=== PATIENT | male | born 1955 | race Caucasian/White ===

== ENCOUNTER 2023-05-13 11:59 | Day surgery (SDC) | payer MEDICARE, OTHER, SELFPAY ==
[2023-05-13] VITALS (7 sets, daily range): BP systolic 109–162; BP diastolic 71–88; PULSE 55–62; RESP 16; TEMP 36.2–36.5; O2SAT 97–100; BMI 26.0
--- NOTE | 2023-05-13 12:26 | PCM.HP.STD ---
[facility] - General General Date of Admission: 05/13/23 Date of Service: 05/13/23 Chief Complaint: Screening colonoscopy HPI Narrative SWAPNIL ASHRAF, is a 68 M who presents today for screening colonoscopy. He had a prior colonoscopy approximately 10 years ago. Patient that he did have some small polyps but they were all benign. He is not in abdominal pain nausea, chest pain or shortness of breath. He does have a history of CAD. He is on Plavix therapy. He also history of gastroesophageal reflux disease and takes pantoprazole. He feels like he is in very good health. [facility] Medical History (Updated 05/07/23 @ 13:50 by Nadia Aguirre) Asthma Cardiology follow-up encounter CPAP (continuous positive airway pressure) dependence Former smoker Hearing deficit Hiatal hernia with gastroesophageal reflux History of colon polyps History of diverticulitis History of echocardiogram History of edema History of stress test Injury of head and neck Rash Restless legs Sleep apnea Stroke TIA (transient ischemic attack) Wears glasses Home Medications clopidogrel 75 mg tablet (Plavix) 75 mg PO DAILY 03/05/23 [History Last Taken 05/11/23] fluticasone furoate 100 mcg-vilanterol 25 mcg/dose inhalation powder (Breo Ellipta) 1 inh inhalation DAILY 03/05/23 [History Last Taken Unknown] pantoprazole 40 mg tablet,delayed release (Protonix) 40 mg PO DAILY 03/05/23 [History Last Taken 05/13/23] Lactobacillus acidophilus 10 billion cell capsule (NewFlora) 100 mmu cells PO DAILY 05/07/23 [History Last Taken Unknown] frmnx-j-kdvvvkxhfnrgp 150 unit PO DAILY 05/07/23 [History Last Taken Unknown] cetirizine 10 mg tablet (24Hour Allergy) 10 mg PO DAILY 05/07/23 [History Last Taken Unknown] cholecalciferol (vitamin D3) 50 mcg (2,000 unit) capsule (Vitamin D3) 50 mcg PO DAILY 05/07/23 [History Last Taken Unknown] magnesium 250 mg tablet 250 mg PO DAILY 05/07/23 [History Last Taken Unknown] multivitamin (Daily Multi-Vitamin tablet) 1 tab PO DAILY 05/07/23 [History Last Taken Unknown] Allergy/AdvReac Type Severity Reaction Status Date / Time amoxicillin Allergy Abd Verified 05/13/23 12:22 cramps/diarrhea Penicillins Allergy Abd Verified 08/22/23 12:22 cramps/diarrhea Influenza Virus Vaccines AdvReac Severe Nausea/Vom/ Verified 05/13/23 12:22 Diarrhea carbidopa [From Sinemet] AdvReac Nausea/Vom/ Verified 05/13/23 12:22 Diarrhea levodopa [From Sinemet] AdvReac Nausea/Vom/ Verified 05/13/23 12:22 Diarrhea Surgical History History of colonoscopy Social History (Updated 03/05/23 @ 09:04 by Irma Martinez) household members: spouse current occupational status: retired Smoking Status: Former smoker additional social history: Very hard of hearing, assists ROS Review of Systems ROS Unobtainable: other Constitutional Constitutional: Denies fatigue, fever(s), poor appetite, weight gain or weight loss ENT HEENT: Denies mouth lesions Cardiovascular Cardiovascular: Denies abdominal bloating, abdominal edema or abdominal pain Respiratory/Chest Respiratory/Chest: Denies change in mental status, change in phlegm color, chest congestion or chest tightness Gastrointestinal Gastrointestinal: Denies belching, bloating, change in bowel habits, change in stool character, chewing difficulty, coffee ground emesis, constipation, cramping, diarrhea, dyspepsia, dysphagia, early satiety, excessive flatus, fecal incontinence, heartburn, hematemesis, hematochezia, hemorrhoids, loose stools, melena, nausea, odynophagia, rectal bleeding, tenesmus, vomiting or weight changes Genitourinary Genitourinary: Denies abdominal discomfort, burning urination or itching Musculoskeletal Musculoskeletal: Reports as per HPI; Denies muscle weakness or myalgias Integumentary Integumentary: Denies jaundice Neurologic Neurologic: Denies lack of coordination or weakness Psychiatric Psychiatric: Denies confusion, depression, memory loss, mood swings, paranoia or suicidal ideation Endocrine Endocrinology: Denies systems reviewed and no addt'l complaints, except as documented Hematologic/Lymphatic Hematologic/Lymphatic: Denies anemia, easy bleeding, easy bruising or lymphadenopathy Allergic/Immunologic Allergic/Immunologic: Denies systems reviewed and no addt'l complaints, except as documented Physical Exam Const alert General Appearance: cooperative Orientation / Consciousness: oriented to person HEENT hearing grossly normal bilaterally Head and Scalp: normal to inspection Face and Sinus: face symmetric Nose: external nose normal Mouth: oral and palatal mucosa normal Eyes conjunctivae normal General Eye: normal appearance of both eyes Neck full ROM General: normal visual inspection Lymph Lymphatic: no lymphadenopathy noted Chest inspection of chest normal and palpation of chest normal Chest: symmetrical chest wall rise Resp normal respiratory effort Effort and Inspection: able to speak in complete sentences Cardio regular rate GI non-distended Percussion: normal to percussion Rectal Exam: deferred Neuro Speech: speech normal Gait (Neuro): normal gait Assessment & Plan Assessment/Plan (1) Encounter for screening for malignant neoplasm of colon: PLAN: He was explained alternatives, risk, benefits including not withstanding bleeding, infection, sepsis, perforation, need for emergent surgery and . He will have an ASA of 2.
[2023-05-13] MEDS: Lactated Ringers 1,000 ML 15 ML IV (12:30)
--- NOTE | 2023-05-13 13:15 | COLBX_PTH ---
PATIENT: SWAPNIL ASHRAF LOC: EN U#:[id number] AGE/SX: 68/M ROOM: RE05/13/[address]: Dr. Rober Lombardi DO : 1955 BED: DIS: 05/13/2023 SPEC #: [id number] RECD: 05/14/23 09:22 STATUS: [facility] #: [id number] COY: 05/13/23 13:[address]: Rober Lombardi DEPT: SURGICAL PATHOLOGY RECD BY: Alisa Reyes ENTERED: 05/14/23 09:22 SP TYPE: COLON BX YI DR: Dr. Landon Christina MD Tissues: A - Sigmoid colon biopsy B - Rectum, NOS Procedures: Surgery Specimen Level IV HEADER OPERATION: Colonoscopy PRE-OP DIAGNOSIS: Encounter for screening for malignant neoplasm of colon TISSUE SUBMITTED: A. Sigmoid colon polyp biopsy x2, B. Rectum polyp biopsies MICROSCOPIC DIAGNOSIS A. Sigmoid colon polyp x2, biopsy: Fragments of tubular adenoma. B. Rectum polyp biopsy: Fragments of hyperplastic polyp. SJ: 05/15/2023 MICROSCOPIC DESCRIPTION Slides are reviewed. GROSS DESCRIPTION A. Received is one container labeled with the patient name and designated sigmoid colon polyp. The specimen consists of multiple irregular fragments of light alvarez soft tissue that in aggregate measure 1.0 x 0.5 x 0.1 cm. The specimen is totally submitted in one cassette. B. Received is one container labeled with the patient name and designated rectum polyp. The specimen consists of two irregular fragments of light alvarez soft tissue that in aggregate measure 0.5 x 0.5 x 0.1 cm. The specimen is totally submitted in one cassette. /AM:yojana 05/14/23 TC: 1 CPT: 96242 x2
--- NOTE | 2023-05-13 13:53 | OP.COLON_ITS ---
Patient Name: Pravin Frances Procedure Date: 05/13/2023 1:16 PM Date of : 1955 Age: 68 Procedure: Colonoscopy Indications: Screening for colorectal malignant neoplasm Providers: Rober Lombardi DO Referring MD: Rober Lombardi DO Medicines: Monitored Anesthesia Care Patient Profile: This is a 68 year old male. Refer to note in patient chart for documentation of history and physical. Last Colonoscopy: 10 years ago. Complications: No immediate complications. Procedure: Pre-Anesthesia Assessment: - Prior to the procedure, a History and Physical was performed, and patient medications and allergies were reviewed. The risks and benefits of the procedure and the sedation options and risks were discussed with the patient. All questions were answered and informed consent was obtained. Patient identification and proposed procedure were verified by the physician in the pre-procedure area. Mental Status Examination: alert and oriented. Respiratory Examination: clear to auscultation. CV Examination: normal. Prophylactic Antibiotics: The patient does not require prophylactic antibiotics. Prior Anticoagulants: The patient has taken no anticoagulant or antiplatelet agents. After reviewing the risks and benefits, the patient was deemed in satisfactory condition to undergo the procedure. The anesthesia plan was to use monitored anesthesia care (MAC). Immediately prior to administration of medications, the patient was re-assessed for adequacy to receive sedatives. The heart rate, respiratory rate, oxygen saturations, blood pressure, adequacy of pulmonary ventilation, and response to care were monitored throughout the procedure. The physical status of the patient was re-assessed after the procedure. After I obtained informed consent, the scope was passed under direct vision. Throughout the procedure, the patient's blood pressure, pulse, and oxygen saturations were monitored continuously. The Colonoscope was introduced through the anus and advanced to the cecum, identified by appendiceal orifice and ileocecal valve. The colonoscopy was performed without difficulty. The patient tolerated the procedure well. The quality of the bowel preparation was adequate. The ileocecal valve, appendiceal orifice, and rectum were photographed. Scope In: 1:28:47 PM Scope Withdrawal Time 0 hours 12 minutes 15 seconds Scope Out: 1:44:38 PM Total Procedure Duration Time 0 hours 15 minutes 51 seconds Findings: The perianal and digital rectal examinations were normal. Non-bleeding internal hemorrhoids were found during retroflexion. The hemorrhoids were moderate and Grade II (internal hemorrhoids that prolapse but reduce spontaneously). Multiple small and large-mouthed diverticula were found in the sigmoid colon. A 5 mm polyp was found in the rectum sigmoid colon. The polyp was sessile. The polyp was removed with a cold snare. Resection and retrieval were complete. Verification of patient identification for the specimen was done. Estimated blood loss was minimal. A 3 mm polyp was found in the rectum. The polyp was sessile. The polyp was removed with a cold snare. Resection and retrieval were complete. Verification of patient identification for the specimen was done. Estimated blood loss was minimal. A scattered area of moderate melanosis was found in the entire colon. Impression: - Non-bleeding internal hemorrhoids. - Diverticulosis in the sigmoid colon. - One 5 mm polyp in the rectum in the sigmoid colon, removed with a cold snare. Resected and retrieved. - One 3 mm polyp in the rectum, removed with a cold snare. Resected and retrieved. - Melanosis in the colon. Recommendation: - Discharge patient to home. - Resume previous diet. - Continue present medications. - Await pathology results. - Repeat colonoscopy in 5 years for surveillance. Procedure Code(s): --- Professional --- 79617, Colonoscopy, flexible; with removal of tumor(s), polyp(s), or other lesion(s) by snare technique CPT copyright 2021 [employer]. All rights reserved. The codes documented in this report are preliminary and upon leaflet distributor review may be revised to meet current compliance requirements. Rober Lombardi DO 05/13/2023 1:53:01 PM This report has been signed electronically. Number of Addenda: 0 Note Initiated On: 05/13/2023 1:16 PM
--- NOTE | 2023-05-13 13:54 | OP.CCLET_ITS ---
05/13/2023 Landon Christina Re : Colonoscopy procedure for Pravin Frances Dear [place] This procedure was performed on Saturday, May 13, 2023. My impressions and recommendations are as follows: Impressions : - Non-bleeding internal hemorrhoids. - Diverticulosis in the sigmoid colon. - One 5 mm polyp in the rectum in the sigmoid colon, removed with a cold snare. Resected and retrieved. - One 3 mm polyp in the rectum, removed with a cold snare. Resected and retrieved. - Melanosis in the colon. Recommendations : - Discharge patient to home. - Resume previous diet. - Continue present medications. - Await pathology results. - Repeat colonoscopy in 5 years for surveillance. My findings are described in the full procedure note, which is enclosed. If I can be of further assistance, please feel free to contact me at . Sincerely, Rober Lombardi, 05/13/2023 1:53:01 PM This report has been signed electronically.
== END 2023-05-13 14:27 | disposition home or self-care (01) ==
LOC: EN 12:01 → AC 12:04
PROVIDERS: PCP Family Medicine; Referring Provider Internal Medicine Gastroenterology; Visit Provider Internal Medicine Gastroenterology
PROC: 0DJD8ZZ Inspection of Lower Intestinal Tract, Via Natural or Artificial Opening Endoscopic (ICD-10-PCS; CPT 45378; principal; 2023-05-13 13:10)
DX: Z12.11 Encounter for screening for malignant neoplasm of colon (principal); K21.9 Gastro-esophageal reflux disease without esophagitis; K63.89 Other specified diseases of intestine; I25.10 Atherosclerotic heart disease of native coronary artery without angina pectoris; K64.1 Second degree hemorrhoids; Z79.51 Long term (current) use of inhaled steroids; Z79.02 Long term (current) use of antithrombotics/antiplatelets; K57.30 Diverticulosis of large intestine without perforation or abscess without bleeding; Z87.891 Personal history of nicotine dependence; Z86.010 Personal history of colon polyps; Z79.899 Other long term (current) drug therapy; J45.909 Unspecified asthma, uncomplicated; D12.5 Benign neoplasm of sigmoid colon
CPT/HCPCS: 45385; 88305; J7120